=== PATIENT | male | born 1965 | race Caucasian/White ===

== ENCOUNTER 2022-07-08 11:03 | Emergency (ER) | payer OTHER ==
[~2022-07-08] VITALS: Ht 185.4 cm; Wt 90.7 kg
[2022-07-08] MEDS ORDERED: VASOTEC20 M1 (11:29)
[2022-07-08] MEDS ORDERED: NORFLEX100MG PO (12:14)
[2022-07-08] MEDS ORDERED: KETO10TA2 PO (12:14)
== END 2022-07-08 13:00 | disposition home or self-care (01) ==
LOC: ER 11:03
DX: T14.90XA Injury, unspecified, initial encounter (principal); V49.9XXA Car occupant (driver) (passenger) injured in unspecified traffic accident, initial encounter; Y93.9 Activity, unspecified; Y92.413 State road as the place of occurrence of the external cause; Y99.9 Unspecified external cause status; I10 Essential (primary) hypertension